=== PATIENT | male | born 1990 | race Caucasian/White ===

== ENCOUNTER 2017-10-23 18:10 | Observation (INO) | payer OTHER, SELFPAY ==
[2017-10-23] VITALS (9 sets, daily range): BP systolic 115–132; BP diastolic 78–91; PULSE 90–101; RESP 14–23; TEMP 36.8; O2SAT 93–100; BMI 26.6; BMI 25.8
--- NOTE | 2017-10-23 19:04 | EKG12_ITS ---
Test Reason : OD Blood Pressure : / mmHG Vent. Rate : 089 BPM Atrial Rate : 089 BPM P-R Int : 080 ms QRS Dur : 158 ms QT Int : 400 ms P-R-T Axes : 108 049 211 degrees QTc Int : 486 ms Sinus rhythm with short MI Left ventricular hypertrophy with QRS widening and repolarization abnormality Abnormal ECG Confirmed by ADAM ELLSWORTH ([id number]), editor newspaper MILO FUENTES ([id number]) on 10/27/2017 10:21:18 AM Referred By: GEORGETTE/GAURAV Confirmed By:ADAM ELLSWORTH
--- NOTE | 2017-10-23 19:06 | ED.VISSUMM ---
- ER Visit Summary Date of Service: 10/23/17 Chief Complaint: Overdose History of Present Illness: The patient is a 27 M presents here with mother for over ingestion of benzodiazepine. Patient history if significant anxiety. He has been on Xanax 6 mg every 6 hours for the past 6 years. He has failed previous treatment. Prescription by his PCP. He is also on Ambien at night to sleep. Patient was seen in [place] ED yesterday, mother present states his Xanax was swapped out for prescription of Valium. He was given 10 mg doses, total of 20 tabs. Mother states previously she would manage his pills, however today she allowed him to go fill his medications. He picked that up this afternoon, states over the span of 2 hours he took a total of 18 tabs, last dose was around 4 PM. He denies any suicidal ideations. He just states he wanted anxiety to go away. Increasing stressors at home, states grandmother recent diagnosis of cancer. He denies any alcohol or illicit drug use. No chest pains or shortness of breath. No nausea or vomiting. Physical Examination: General: Alert and oriented ?3, somnolent, however arousable to discussion. HEENT: Normocephalic, atraumatic. Moist mucosa membranes Neck: supple, nontender. Cardiovascular: Regular rate and rhythm, no murmurs Respiratory: Normal breath sounds, symmetric, no distress Abdomen: Soft, nontender, nondistended Extremities: Nontender, no edema, pulses intact ?4 Neuro: no focal neurological deficits. Test Results: EKG with no acute changes. Tylenol and aspirin negative. Alcohol negative. Tox screen positive for benzodiazepine. Emergency Department Course and Treatment: Patient vitals stable, somnolent, however answering questions. I did speak with poison control, they state medicines peak at 1/2-2 hours. The recommended 4 hour watch. He was monitored, return to baseline. He denies any suicidal or homicidal ideations. He is medically cleared. I did have crisis evaluate the patient, they spoke and agreed with intensive outpatient therapy. On rediscussion with the patient, with mother, he states he would like to get off the benzodiazepine. He states he feels he is now dependent on them. Therefore I do feel he will benefit from [facility] admission for weaning off the medications. I spoke with hospitalist, Dr. Red who will evaluate for admission. Treatment Plan: [] Disposition: Admission Impression: 1. Benzodiazepine dependence 2. Over ingestion of benzodiazepine 3. Anxiety This note was generated with [employer] dictation software. It may contain incorrect words, spelling, and punctuation that were not noted in review of the chart prior to signing ED Disposition - Plan for ED Patient: Disposition: Acute [facility] Chief Complaint: Overdose Diagnosis: Benzodiazepine dependence, Benzodiazepine overdose, Anxiety
[2017-10-23] MEDS: 0.9% Normal Saline 1,000 ML 150 ML IV (19:11)
[2017-10-23 19:26] LABS: ALB/GLOB Ratio 1.3 RATIO (0.9-2.4); AST(SGOT) 12 U/L (15-37); Alanine Aminotransfer ALT/SGPT 24 U/L (16-61); Albumin, Serum 4.4 g/dL (3.2-5.0); Alkaline Phosphatase 54 U/L (45-117); Anion Gap 6 (5-15); BUN 17 mg/dL (7-18); BUN/Creat Ratio 20.6 RATIO (10-20); Chloride 104 mmol/L (98-107); Creatinine, Serum 0.83 mg/dL (0.70-1.30); EST Glomerular Filtration Rate 117 mL/min (>60); Est Glom Filt Rate - Afr Amer 141 mL/min (>60); Estimated Creatinine Clearance 131.32 ml/min; Globulin 3.3 g/dL (2.2-4.2); Glucose 80 mg/dL (74-106); Potassium 3.7 mmol/L (3.5-5.1); Protein, Total 7.7 g/dL (6.4-8.2); Sodium Level 139 mmol/L (136-145)
[2017-10-23 19:29] LABS: Alcohol, Blood (Medical)-Serum < 3.0 mg/dL
[2017-10-23 19:32] LABS: Absolute Lymphocyte Count 2.78 X10^3/ul (0.83-4.51); Absolute Neutrophil Count 2.6 X10^3/uL (2.0-7.7); Basophil# 0.05 X10^3/uL; Basophil% 0.8 % (0-1); Eosinophil# 0.44 X10^3/uL; Eosinophils% 6.7 % (0-5); Hematocrit 43.4 % (40-54); Hemoglobin 14.8 g/dl (13.0-16.5); Lymphocyte # 2.78 X10^3/ul (4.0); Lymphocyte % 42.4 % (19-41); Mean Corp Hgb Conc 34.1 g/gl (32-36); Mean Platelet Vol. 9.5 fl (6.2-12.0); Monocyte# 0.65 X10^3/uL; Monocyte% 9.9 % (0-10); Neutrophil # 2.63 X10^3/uL (2.7-7.7); Platelet Count 276 K/mm3 (150-450); RBC Distribution Width CV 12.3 % (11.6-14.6); RBC Distribution Width SD 39.3 fl (35.1-43.9); Red Blood Count 4.93 M/mm3 (4.6-6.2); White Blood Count 6.6 K/mm3 (4.4-11.0)
[2017-10-23 19:35] LABS: POSITIVE COUNT NO; POSITIVE DIFFERENTIAL NO; POSITIVE MORPHOLOGY NO
[2017-10-23 20:36] LABS: Acetaminophen (Tylenol) Level < 2.0 ug/mL (10.0-30.0); Salicylate < 1.7 mg/dL (2.8-20.0)
[2017-10-23 20:36] LABS: Amphetamine Urine VISTA NEGATIVE (<1000 ng/mL); Barbiturate Urine VISTA NEGATIVE (< 200 ng/mL); Benzodiazepine Urine VISTA POSITIVE (< 200 ng/mL); Cocaine Urine VISTA NEGATIVE (< 300 ng/mL); Ecstacy Urine VISTA NEGATIVE (< 500 ng/mL); Methadone Urine VISTA NEGATIVE (< 300 ng/mL); PCP Urine VISTA NEGATIVE (< 25 ng/mL); THC Urine VISTA NEGATIVE (< 50 ng/mL); Vista UDS pH Range 6
--- NOTE | 2017-10-23 23:25 | HP.PCM_ITS ---
Problem List (1) EKG abnormal Status: Chronic (2) Anxiety Status: Acute (3) Benzodiazepine dependence Status: Chronic (4) Benzodiazepine overdose Status: Acute History of Present Illness Date of Admission: 10/23/17 Chief Complaint: Benzodiazepine overdose and withdrawal symptoms The patient is a 27 year old M about 6 years of benzodiazepine dependence, Xanax 6 mg every day for last 3 years was brought into ER for overdose of benzodiazepine. He also takes Ambien 10 mg at night. In [facility] yesterday , Xanax was swapped to long-acting Valium and Valium 10 mg was prescribed total of 20 tablets. He took 18 tablets in the span of 5 hours, last dose about 3-4 PM today. In ER, patient was seen by mental health professional, Ms. Chavez and suicidal ideation, attempt was ruled out. To me, patient also denies suicidal ideation, thoughts or attempt in the past. As per the mother, he routinely takes extra doses than prescribed dose for long time. He is really get withdrawal symptoms like anxiety/panic attack, abnormal dreams at night, muscle twitching and restlessness. Denies history of seizure. He occasionally takes wine but no history of alcohol, opioid/heroin, PCP or methamphetamine or other signs dependence [] Past Medical History Past Medical History (Chronic Problems): Chronic Problems Benzodiazepine dependence (Chronic) EKG abnormal (Chronic) Allergies No Known Allergies Allergy (Verified 10/23/17 18:10) Home Medications: Ambulatory Orders Medication Instructions Recorded ALPRAZolam [Xanax] 1 mg PO TID PRN PRN 10/23/17 Zolpidem Tartrate [Ambien] 10 mg PO QHS 10/23/17 Smoking Status: Never smoker - *Family History Paternal History Items: No pertinent history Review of Systems Constitutional: Reports: Weakness, Fatigue. Denies: Chills, Fever, Weight Change HEENT: Denies: Head Aches, Sinus Congestion, Sinus Drainage Cardiovascular: Denies: Chest Pain, Palpitations Respiratory: Denies: Cough, Shortness of breath at rest, Sputum production Gastrointestinal: Denies: Abdominal Pain, Nausea, Vomiting Genitourinary: Denies: Dysuria Musculoskeletal: Reports: Muscle pain. Denies: Joint Pain, Joint Tenderness Skin: Denies: Rash, Wounds Neurological: Denies: Numbness, Tingling, Focal weakness Psychiatric: Reports: Anxiety. Denies: Depression, Homicidal Ideations, Suicidal Ideations Hematologic/ Lymphatic: Denies: Easy Bruising, Easy Bleeding VTE Information - Inpt Only VTE Present on Admission: No VTE Mechan Device Prophylaxis: None Reason prophylaxis not ordered:: Procedure Not Indicated - Low risk - Physical Exam General: Alert, Oriented x3, Cooperative HEENT: Atraumatic, PERRLA, EOMI, Normocephalic Oral: Dry Mucosa Neck: Supple, No JVD, Negative Carotid Bruits Lungs: Clear to auscultation, Normal air movement Cardiovascular: Regular rate, Regular Rhythm, Normal S1, Normal S2, No murmurs Abdomen: Bowel Sounds Present, Soft, Non Tender, Non-Distended Extremities: No edema, Capillary Refill Less than 3 Seconds Skin: No rashes, No breakdown Musculoskeletal: No Tenderness to Palpation of Joints or Extremities Neurological: Cranial nerves II-XII grossly intact, Neuro grossly intact, - - Mild tremor Psych/Mental Status: Anxious, Restless Vital Signs Temp Pulse Resp BP Pulse Ox 98.3 F 97 20 H 117/78 100 10/23/17 18:13 10/23/17 21:00 10/23/17 21:00 10/23/17 21:00 10/23/17 21:00 Oxygen Delivery Method Room Air Weight: 180 lb 5.41 oz Body Mass Index (BMI) 26.6 Laboratory Tests Past 24 Hrs 10/23/17 10/23/17 10/23/17 18:25 18:25 18:25 WBC 6.6 RBC 4.93 Hgb 14.8 Hct 43.4 MCV 88.0 MCH 30.0 MCHC 34.1 RDW 12.3 RDW Differential 39.3 Plt Count 276 MPV 9.5 Immature Gran % (Auto) 0.200 Neut % (Auto) 40.0 L Lymph % (Auto) 42.4 H Wilbarger % (Auto) 9.9 Eos % (Auto) 6.7 H Baso % (Auto) 0.8 Absolute Neuts (auto) 2.6 Absolute Lymphs (auto) 2.78 Total Counted Not Reportable Sodium 139 Potassium 3.7 Chloride 104 Carbon Dioxide 29.0 Anion Gap 6 BUN 17 Creatinine 0.83 Estim Creat Clear Calc 131.32 Est GFR (MDRD) Af Amer 141 Est GFR (MDRD) Non-Af 117 BUN/Creatinine Ratio 20.6 H Glucose 80 Calcium 9.0 Total Bilirubin 0.30 AST 12 L ALT 24 Alkaline Phosphatase 54 Total Protein 7.7 Albumin 4.4 Globulin 3.3 Albumin/Globulin Ratio 1.3 Salicylates Urine Opiates Screen Urine Methadone Screen Acetaminophen Ur Barbiturates Screen Ur Phencyclidine Scrn Ur Amphetamines Screen U Methamphetamin-MDMA U Benzodiazepines Scrn Urine Cocaine Screen U Cannabinoids Screen Ur Drug Screen Comment Ethyl Alcohol < 3.0 10/23/17 10/23/17 18:25 19:55 WBC RBC Hgb Hct MCV MCH MCHC RDW RDW Differential Plt Count MPV Immature Gran % (Auto) Neut % (Auto) Lymph % (Auto) Wilbarger % (Auto) Eos % (Auto) Baso % (Auto) Absolute Neuts (auto) Absolute Lymphs (auto) Total Counted Sodium Potassium Chloride Carbon Dioxide Anion Gap BUN Creatinine Estim Creat Clear Calc Est GFR (MDRD) Af Amer Est GFR (MDRD) Non-Af BUN/Creatinine Ratio Glucose Calcium Total Bilirubin AST ALT Alkaline Phosphatase Total Protein Albumin Globulin Albumin/Globulin Ratio Salicylates < 1.7 L Urine Opiates Screen NEGATIVE Urine Methadone Screen NEGATIVE Acetaminophen < 2.0 L Ur Barbiturates Screen NEGATIVE Ur Phencyclidine Scrn NEGATIVE Ur Amphetamines Screen NEGATIVE U Methamphetamin-MDMA NEGATIVE U Benzodiazepines Scrn POSITIVE H Urine Cocaine Screen NEGATIVE U Cannabinoids Screen NEGATIVE Ur Drug Screen Comment Ethyl Alcohol Assessment/Plan All Active Problems Benzodiazepine overdose (Acute) Anxiety (Acute) The patient is a 27 year old M about 6 years of benzodiazepine dependence, Xanax 6 mg every day for last 3 years was brought into ER for overdose of benzodiazepine. He also takes Ambien 10 mg at night. In [facility] ER yesterday , Xanax was swapped to long-acting Valium and Valium 10 mg was prescribed total of 20 tablets. He took 18 tablets in the span of 5 hours, last dose about 3-4 PM today. In ER, patient was seen by mental health professional, Ms. Chavez and suicidal ideation, attempt was ruled out. To me, patient also denies suicidal ideation, thoughts or attempt in the past. As per the mother, he routinely takes extra doses than prescribed dose for long time. He is really get withdrawal symptoms like anxiety/panic attack, abnormal dreams at night, muscle twitching and restlessness and sometimes anger attacks/ agitation. Denies history of seizure. He occasionally takes wine but no history of alcohol, opioid/heroin, PCP or methamphetamine or other signs dependence. EKG shows normal sinus rhythm at 90 bpm with LVH with repolarization abnormality. As per the mother, patient was very obese about to 50 pound but he lost significant weight and had hypertension in the past but currently blood pressure is normal. In ED, heart rate is in 90s. Blood pressure 128/91, respiratory rate 18, pulse ox 97% on room air 1. Benzodiazepine/Valium overdose with history of benzodiazepine dependence and tolerance: The patient is admitted on regular MedSurg floor. On [facility] protocol, order set started for benzodiazepine dependence. Basic labs unremarkable. Acetaminophen, salicylate level normal. Alcohol normal. LFT within normal limit. U tox positive of benzodiazepine. 2. Acute benzodiazepine withdrawal: As mentioned above. Needs to be assessed by [facility] nurse tomorrow morning. Discharge plan as per [facility] program. 3. Abnormal EKG of LVH with repolarization abnormality: Possible chronic change. Currently blood pressure is normal and patient is not on antihypertensive medication. DVT prophylaxis: Low risk no prophylaxis indicated. Early ambulation encouraged. Laboratory Results 10/23/17 18:25: WBC 6.6, RBC 4.93, Hgb 14.8, Hct 43.4, MCV 88.0, MCH 30.0, MCHC 34.1, RDW 12.3, RDW Differential 39.3, Plt Count 276, MPV 9.5, Immature Gran % ( Auto) 0.200, Neut % (Auto) 40.0 L, Lymph % (Auto) 42.4 H, Wilbarger % (Auto) 9.9, Eos % (Auto) 6.7 H, Baso % (Auto) 0.8, Absolute Neuts (auto) 2.6, Absolute Lymphs (auto) 2.78, Total Counted Not Reportable 10/23/17 18:25: Sodium 139, Potassium 3.7, Chloride 104, Carbon Dioxide 29.0, Anion Gap 6, BUN 17, Creatinine 0.83, Estim Creat Clear Calc 131.32, Est GFR ( MDRD) Af Amer 141, Est GFR (MDRD) Non-Af 117, BUN/Creatinine Ratio 20.6 H, Glucose 80, Calcium 9.0, Total Bilirubin 0.30, AST 12 L, ALT 24, Alkaline Phosphatase 54, Total Protein 7.7, Albumin 4.4, Globulin 3.3, Albumin/Globulin Ratio 1.3 10/23/17 18:25: Ethyl Alcohol < 3.0 10/23/17 18:25: Salicylates < 1.7 L, Acetaminophen < 2.0 L 10/23/17 19:55: Urine Opiates Screen NEGATIVE, Urine Methadone Screen NEGATIVE, Ur Barbiturates Screen NEGATIVE, Ur Phencyclidine Scrn NEGATIVE, Ur Amphetamines Screen NEGATIVE, U Methamphetamin-MDMA NEGATIVE, U Benzodiazepines Scrn POSITIVE H, Urine Cocaine Screen NEGATIVE, U Cannabinoids Screen NEGATIVE, Ur Drug Screen Comment Code Visit Inpatient E&M: 98972 Init Hosp L3
[2017-10-24] VITALS (13 sets, daily range): BP systolic 97–126; BP diastolic 51–77; PULSE 74–104; RESP 14–18; TEMP 36.4–36.9; O2SAT 93–99
[2017-10-24] MEDS: chlordiazePOXIDE 25 MG Capsule PO ×6 (00:57→21:00)
--- NOTE | 2017-10-24 09:22 | NURSING ---
Addendum entered by Stefany Foote 10/24/17 12:29: Kleber from behavioral health in to see patient this morning. Original Note: Dr. Rolon verbalized request for [facility] to be notified and come see patient as well as [facility] behavioral health. This RN called Prema at [facility] and she states she will come see patient today. Linnea, [facility] behavioral health notified of consult as well. Dr. Rolon notified of same.
[2017-10-24] MEDS: Folic Acid 1 MG Tablet PO (10:15)
[2017-10-24] MEDS: Thiamine Hydrochloride 100 MG Tablet PO (10:15)
[2017-10-24] MEDS: Multivitamins,Ther W-Minerals Tablet 1 TABLET PO (10:15)
[2017-10-24] MEDS: cloNIDine HCl 0.1 MG Tablet PO (10:16)
[2017-10-24] MEDS: Ibuprofen 600 MG Tablet PO (10:16)
[2017-10-24] MEDS: QUEtiapine 25 MG Tablet PO ×2 (10:17→21:01)
--- NOTE | 2017-10-24 10:27 | PCM.PN.HOSP ---
Subjective: Patient notes feeling improved since initial presentation. Patient again confirms that he does have anxiety and depression but does not have suicidal ideations and recent ingestion was not a suicide attempt. He does admit to excessive usage. [facility] did speak with him to assist in placement following acute rehabilitation; however, he appeared somewhat reticent. His mother is in the room during discussions. Discussed need to transition/taper off BZD and transition for his anxiety and depression to SSRI versus SNRI agent and avoid BZD usage as well as avoidance of BZD-like agents, i.e. ambien with consideration trazodone if needed. Patient denies fevers, chills, nausea, emesis, abdominal pain, chest pain or dyspnea. Objective: Physical Examination: General: awake, alert, oriented x 3 and cooperative, seated upright in bed in no apparent distress. Skin: normal color, turgor, no icterus, cyanosis. HEENT: AT/NC, EOMI, PERRLA, MMM. Lungs: CTA bilaterally, moderate effort, mild decrease BL bases, no rales, ronchi or wheezing. Heart: Regular rate and rhythm; no gallop, rub audible. Abdomen: soft, NTTP, ND, normal BS. Extremities: no cyanosis, clubbing, or edema. Neurological: patient awake, alert, oriented x 3; cognitive function intact; pupils equally reactive to light and accomodation; cranial nerves II-XII grossly normal, moving all 4 extremities, no focal deficits, strength mildly globally decreased. Psychiatric: affect appears mildly flat, denies SI, does admit to anxiety and depression. Admits to overuse of BZD secondary to uncontrolled anxiety. Vitals/I&O's: Vital Signs Temp Pulse Resp BP Pulse Ox 97.6 F L 75 16 110/58 L 96 10/24/17 05:43 10/24/17 05:43 10/24/17 05:43 10/24/17 05:43 10/24/17 04:30 Oxygen Delivery Method Room Air Weight: 175 lb Body Mass Index (BMI) 25.8 Intake and Output for Last 24 Hours 10/22/17 10/23/17 10/24/17 23:59 23:59 23:59 Intake Total 100 / 100 Balance 100 / 100 Current Medications Acetaminophen (Tylenol) 500 mg PO Q4H PRN PRN PRN Reason: Temp > 100.4 F Al Hydroxide/Mg Hydroxide (Mylanta Ii) 30 ml PO Q6H PRN PRN PRN Reason: dyspesia Bisacodyl (Dulcolax) 10 mg RECTAL DAILY PRN PRN Reason: Constipation Chlordiazepoxide (Librium) 25 mg PO Q6H PRN PRN PRN Reason: Anxiety Score 2-3/3 Chlordiazepoxide (Librium) 25 mg PO Q4H [facility] Stop: 10/24/17 21:01 Last Admin: 10/24/17 10:16 Dose: 25 mg Chlordiazepoxide (Librium) 25 mg PO Q6H [facility] Stop: 10/25/17 21:01 Clonidine (Catapres) 0.1 mg PO Q2H PRN PRN PRN Reason: Hot/Cold Sweats or Anxiety Last Admin: 10/24/17 10:16 Dose: 0.1 mg Dicyclomine HCl (Bentyl) 20 mg PO Q6H PRN PRN PRN Reason: Abdomnial Discomfort Folic Acid (Folic Acid) 1 mg PO DAILY@0800 [facility] Last Admin: 10/24/17 10:15 Dose: 1 mg Hydroxyzine HCl (Vistaril Vial) 50 mg IM Q6H PRN PRN PRN Reason: Breakthrough Anxiety Hydroxyzine Pamoate (Vistaril Pamoate Capsule) 50 mg PO Q6H PRN PRN PRN Reason: Mild Anxiety (score 1/3) Ibuprofen (Motrin) 600 mg PO Q8H PRN PRN PRN Reason: Mild-Moderate Pain (1-5/10) Last Admin: 10/24/17 10:16 Dose: 600 mg Loperamide HCl (Imodium) 2 - 4 mg PO UD PRN PRN Reason: LOOSE STOOLS Methocarbamol (Methocarbamol) 750 mg PO Q6H PRN PRN PRN Reason: Muscle Aches Multivitamins/Minerals (Multivitamin With Minerals) 1 tablet PO DAILYCM [facility] Last Admin: 10/24/17 10:15 Dose: 1 tablet Ondansetron HCl (Zofran Odt) 4 mg PO Q6H PRN PRN PRN Reason: NAUSEA Pramipexole Dihydrochloride (Mirapex) 0.25 mg PO Q12H PRN PRN PRN Reason: Restless Legs Quetiapine Fumarate (Seroquel) 25 mg PO Q6H PRN PRN PRN Reason: Moderate Anxiety (score 2/3) Last Admin: 10/24/17 10:17 Dose: 25 mg Senna (Senokot) 1 tablet PO QHS PRN PRN PRN Reason: Constipation Sodium Chloride () 5 - 30 ml IV UD PRN PRN Reason: SALINE FLUSH [facility] ([facility]) [facility] Last Admin: 10/24/17 10:15 Dose: 100 mg Trazodone HCl (Desyrel) 50 mg PO QHS [facility] Medical Necessity - Tobacco Use Smoking Status: Never smoker Assessment/Plan All Active Problems Benzodiazepine overdose (Acute) Anxiety (Acute) The patient is a 27 y/o M w/ PMHx: Prior Hx HTN, Anxiety and Depression, BZD Abuse who presents to the [facility] on 10/23/17 with history of progressively increasing Xanax usage over the last 3 years in addition to benzodiazepine-like agents at night with excessive usage on day of admission with denied suicidal ideation but uncontrolled anxiety, panic attacks and depression. (1) Acute BZD Overdose and Now Acute Withdrawal w/ Underlying Anxiety and Depression: Given excessive intake, sedation and once held withdrawal onset, patient admitted to [place], routine labs obtained, initiated and continue on [facility] service protocol with taper course of librium, as needed Seroquel, Catapres, Bentyl, Vistaril, IV fluids, IV antiemetics, Tylenol as needed for pain. Once patient clinically improved and completion of taper nearing will plan [facility] assistance for transition to next level of rehabilitation care possibly [place] [facility] as it is a Mental and Drug treatment facility ([place], [place], [address] [place] [address]). Dr. Fuentes contacted regarding his patient additionally given presentation and if does not transition to drug/mental health rehab facility after acute treatment would necessitate prolonged taper upon discharge to avoid BZD withdrawal. Also, pending Behavioral Health service evaluation (2) Hypertension: Prior history, improved with weight loss, continue to monitor. (3) EKG Changes: EKG in the ED w/ LVH with repolarization abnormality, possibly chronic, will repeat. ECHO pending. Mag pending. (4) DVT prophylaxis: Low risk, ambulation. PROLONGED CARE TIME: Evaluation of patient, discussion with [facility], contacting PCP required 60 minutes above initial 70 minute visit. Code Visit Inpatient E&M: 90896 Subs Hosp L2 Procedures: 20416 Prolonged InPt Service; first hour
--- NOTE | 2017-10-24 10:41 | ECHOD_ITS ---
Reason For Study: Arrhythmia Procedure This was a 2D Doppler, Color Flow transthoracic echocardiogram. Exam performed portable in patient room. Left Ventricle Normal size and thickness. The estimated ejection fraction is 65 %. Normal diastology for age. Septal motion consistent with IVCD. No regional wall motion abnormalities noted. Right Ventricle Normal size and thickness. Normal systolic function. Atria Normal left atrium. Normal right atrium. Normal atrial septum. Mitral Valve The mitral valve is structurally normal. No prolapse or stenosis seen. Trivial mitral valve insufficiency. Tricuspid Valve Normal tricuspid valve. Mild (1+) tricuspid valve insufficiency. Right ventricular systolic pressure estimated to be 29 mmHg. Aortic Valve Normal aortic valve. Trisinus/trileaflet aortic valve. Pulmonic Valve Normal pulmonic valve. Great Vessels Normal aortic root. Normal arch. Normal inferior vena cava. Inferior vena cava collapse with sniff. Pericardium/Pleural No pericardial effusion. MMode/2D Measurements & Calculations LVIDd: 4.7 cm IVSd: 0.73 cm Ao root diam: 3.0 cm LVIDs: 3.3 cm LVPWd: 0.82 cm LA dimension: 3.5 cm FS: 30.4 % LAV(MOD-bp): 43.2 ml LA A4 area: 14.7 cm2 RA A4 area: 12.5 cm2 LAV(MOD-bp) Indexed: 22.1 ml/m2 LAV(MOD-sp2): 47.3 ml LAV(MOD-sp4): 32.6 ml Time Measurements MV dec time: 0.24 sec Doppler Measurements & Calculations MV E max angel: 70.2 cm/sec Lat Peak E' Angel: 17.7 cm/sec Med Peak E' Angel: 9.7 cm/sec MV A max angel: 46.6 cm/sec E/E' lat: 4.0 E/E' med: 7.3 MV E/A: 1.5 MV V2 max: 90.6 cm/sec MV P1/2t max angel: 89.9 cm/sec Ao V2 max: 128.1 cm/sec MV max P.3 mmHg MV P1/2t: 71.8 msec Ao max P.6 mmHg MV V2 mean: 55.1 cm/sec MV dec slope: 366.7 cm/sec2 Ao V2 mean: 76.1 cm/sec MV mean P.4 mmHg MVA(P1/2t): 3.1 cm2 Ao mean P.7 mmHg MV V2 VTI: 21.4 cm Ao V2 VTI: 21.1 cm LV V1 max: 103.9 cm/sec PA V2 max: 85.3 cm/sec TR max angel: 243.1 cm/sec LV V1 max P.3 mmHg TR max P.6 mmHg LV V1 mean P.0 mmHg LV V1 mean: 65.3 cm/sec LV V1 VTI: 20.6 cm Interpretation Summary The estimated ejection fraction is 65 %. Normal diastology for age. Trivial mitral valve insufficiency. Mild (1+) tricuspid valve insufficiency. Right ventricular systolic pressure estimated to be 29 mmHg. There is no comparison study available. Ordering Physician: Zamzam Rolon Referring Physician: Marcelo Fuentes Performed By: Grey Cordova RCS
--- NOTE | 2017-10-24 10:41 | EKG12_ITS ---
Test Reason : Blood Pressure : / mmHG Vent. Rate : 096 BPM Atrial Rate : 096 BPM P-R Int : 084 ms QRS Dur : 142 ms QT Int : 366 ms P-R-T Axes : 053 045 226 degrees QTc Int : 462 ms Normal sinus rhythm Ventricular pre-excitation Abnormal ECG When compared with ECG of 23-OCT-2017 18:16, MANUAL COMPARISON REQUIRED, DATA IS UNCONFIRMED Confirmed by DANIEL CABRERA, KADE ([id number]), art editor MILO FUENTES ([id number]) on 10/28/2017 9:49:10 AM Referred By: MURIEL Confirmed By:KADE SANCHEZ MD
--- NOTE | 2017-10-24 10:43 | PN_ITS ---
Subjective: Patient notes feeling improved since initial presentation. Patient again confirms that he does have anxiety and depression but does not have suicidal ideations and recent ingestion was not a suicide attempt. He does admit to excessive usage. [facility] did speak with him to assist in placement following acute rehabilitation; however, he appeared somewhat reticent. His mother is in the room during discussions. Discussed need to transition/taper off BZD and transition for his anxiety and depression to SSRI versus SNRI agent and avoid BZD usage as well as avoidance of BZD-like agents, i.e. ambien with consideration trazodone if needed. Patient denies fevers, chills, nausea, emesis , abdominal pain, chest pain or dyspnea. Objective: Physical Examination: General: awake, alert, oriented x 3 and cooperative, seated upright in bed in no apparent distress. Skin: normal color, turgor, no icterus, cyanosis. HEENT: AT/NC, EOMI, PERRLA, MMM. Lungs: CTA bilaterally, moderate effort, mild decrease BL bases, no rales, ronchi or wheezing. Heart: Regular rate and rhythm; no gallop, rub audible. Abdomen: soft, NTTP, ND, normal BS. Extremities: no cyanosis, clubbing, or edema. Neurological: patient awake, alert, oriented x 3; cognitive function intact; pupils equally reactive to light and accomodation; cranial nerves II-XII grossly normal, moving all 4 extremities, no focal deficits, strength mildly globally decreased. Psychiatric: affect appears mildly flat, denies SI, does admit to anxiety and depression. Admits to overuse of BZD secondary to uncontrolled anxiety. Vitals/I&O's: Vital Signs Temp Pulse Resp BP Pulse Ox 97.6 F L 75 16 110/58 L 96 10/24/17 05:43 10/24/17 05:43 10/24/17 05:43 10/24/17 05:43 10/24/17 04:30 Oxygen Delivery Method Room Air Weight: 175 lb Body Mass Index (BMI) 25.8 Intake and Output for Last 24 Hours 10/22/17 10/23/17 10/24/17 23:59 23:59 23:59 Intake Total 100 / 100 Balance 100 / 100 Current Medications Acetaminophen (Tylenol) 500 mg PO Q4H PRN PRN PRN Reason: Temp > 100.4 F Al Hydroxide/Mg Hydroxide (Mylanta Ii) 30 ml PO Q6H PRN PRN PRN Reason: dyspesia Bisacodyl (Dulcolax) 10 mg RECTAL DAILY PRN PRN Reason: Constipation Chlordiazepoxide (Librium) 25 mg PO Q6H PRN PRN PRN Reason: Anxiety Score 2-3/3 Chlordiazepoxide (Librium) 25 mg PO Q4H [facility] Stop: 10/24/17 21:01 Last Admin: 10/24/17 10:16 Dose: 25 mg Chlordiazepoxide (Librium) 25 mg PO Q6H [facility] Stop: 10/25/17 21:01 Clonidine (Catapres) 0.1 mg PO Q2H PRN PRN PRN Reason: Hot/Cold Sweats or Anxiety Last Admin: 10/24/17 10:16 Dose: 0.1 mg Dicyclomine HCl (Bentyl) 20 mg PO Q6H PRN PRN PRN Reason: Abdomnial Discomfort Folic Acid (Folic Acid) 1 mg PO DAILY@0800 [facility] Last Admin: 10/24/17 10:15 Dose: 1 mg Hydroxyzine HCl (Vistaril Vial) 50 mg IM Q6H PRN PRN PRN Reason: Breakthrough Anxiety Hydroxyzine Pamoate (Vistaril Pamoate Capsule) 50 mg PO Q6H PRN PRN PRN Reason: Mild Anxiety (score 1/3) Ibuprofen (Motrin) 600 mg PO Q8H PRN PRN PRN Reason: Mild-Moderate Pain (1-5/10) Last Admin: 10/24/17 10:16 Dose: 600 mg Loperamide HCl (Imodium) 2 - 4 mg PO UD PRN PRN Reason: LOOSE STOOLS Methocarbamol (Methocarbamol) 750 mg PO Q6H PRN PRN PRN Reason: Muscle Aches Multivitamins/Minerals (Multivitamin With Minerals) 1 tablet PO DAILYCM [facility] Last Admin: 10/24/17 10:15 Dose: 1 tablet Ondansetron HCl (Zofran Odt) 4 mg PO Q6H PRN PRN PRN Reason: NAUSEA Pramipexole Dihydrochloride (Mirapex) 0.25 mg PO Q12H PRN PRN PRN Reason: Restless Legs Quetiapine Fumarate (Seroquel) 25 mg PO Q6H PRN PRN PRN Reason: Moderate Anxiety (score 2/3) Last Admin: 10/24/17 10:17 Dose: 25 mg Senna (Senokot) 1 tablet PO QHS PRN PRN PRN Reason: Constipation Sodium Chloride () 5 - 30 ml IV UD PRN PRN Reason: SALINE FLUSH [facility] Last Admin: 10/24/17 10:15 Dose: 100 mg Trazodone HCl (Desyrel) 50 mg PO QHS [facility] Medical Necessity - Tobacco Use Smoking Status: Never smoker Assessment/Plan All Active Problems Benzodiazepine overdose (Acute) Anxiety (Acute) The patient is a 27 y/o M w/ PMHx: Prior Hx HTN, Anxiety and Depression, BZD Abuse who presents to the [facility] on 10/23/17 with history of progressively increasing Xanax usage over the last 3 years in addition to benzodiazepine-like agents at night with excessive usage on day of admission with denied suicidal ideation but uncontrolled anxiety, panic attacks and depression. (1) Acute BZD Overdose and Now Acute Withdrawal w/ Underlying Anxiety and Depression: Given excessive intake, sedation and once held withdrawal onset, patient admitted to PA, routine labs obtained, initiated and continue on [facility] service protocol with taper course of librium, as needed Seroquel, Catapres, Bentyl, Vistaril, IV fluids, IV antiemetics, Tylenol as needed for pain. Once patient clinically improved and completion of taper nearing will plan [facility] assistance for transition to next level of rehabilitation care possibly [place] at [facility] as it is a Mental and Drug treatment facility ( [place], [place], [address] [place] [address]). Dr. Fuentes contacted regarding his patient additionally given presentation and if does not transition to drug/mental health rehab facility after acute treatment would necessitate prolonged taper upon discharge to avoid BZD withdrawal. Also, pending Behavioral Health service evaluation (2) Hypertension: Prior history, improved with weight loss, continue to monitor. (3) EKG Changes: EKG in the ED w/ LVH with repolarization abnormality, possibly chronic, will repeat. ECHO pending. Mag pending. (4) DVT prophylaxis: Low risk, ambulation. PROLONGED CARE TIME: Evaluation of patient, discussion with [facility], contacting PCP required 60 minutes above initial 70 minute visit. Code Visit Inpatient E&M: 44147 Subs Hosp L2 Procedures: 22979 Prolonged InPt Service; first hour
[2017-10-24 11:28] LABS: Magnesium 2.1 mg/dL (1.6-2.6)
--- NOTE | 2017-10-24 12:45 | BH.NOTE ---
BH: Inpatient Note - Notes Behavioral Health Inpatient Note: 10/24/17 12:[address] Rolon due to anxiety and depressive symptoms. [facility] IOP had also received a referral from [facility] who completed crisis assessment last evening when pt presented to the ER. Spoke with pt in his room alone. Pt did not want his mother present. Pt denied suicidal ideations, plan, or intent to this worker as well as to crisis during ER admission. No hx of previous psychiatric admissions. Not currently linked with mental health treatment. Verbalized that counseling does not work for him and I only want to see M.D.'s about my anxiety and medications however has not attempted to make appointment with any psychiatrist in the area. Pt presented to the ER last evening after ingesting 18 tabs of Valium over the course of 2 hours. Evaluated by crisis and ER staff and was determined not to be imminent danger to self or require inpatient admission.Was referred to Outpatient treatment. He denies that taking the Valium was a suicide attempt instead stating that he needed immediate relief from his anxiety so he took increasingly more. Pt reports that he presented to [facility] on Friday night after panic attacks. During that admission pt reports that they insisted that I give them my Xanax. At that point per pt [facility] started him on Valium. Pt feels that this was bad decision as this medication was not effective. Upon filling the script pt took the 18 tabs over a 2 hour period. Pt reports that his mother had been managing his anxiety medications however she allowed him to fill the script. Pt states several times throughout the assessment that he wants everything to back to the way they were. States wants to be on his previous dose of Xanax which was prescribed through his PCP. Unable or unwilling to identify any triggers to current anxiety or stress aside from not having access to his medications. Does not believe that any other medications or talk therapy will be beneficial. Describes his depression as mild. Pt talked at length about his benzo use and dependence which clearly is primary concern. Asked numerous times if he would be given Benzos at discharge. Admits to misuse of benzos and reliance on them to function normally. We discussed treatment options and pt was dismissive and at times made demands to follow though with any type of treatment stating I'll only do that if I'm back on my normal Xanax dose and I can control my medications Pt does not want his mother to manage his medications anymore. Discussed case with pt's nurse. Current plan is unclear and medical staff are attempting to communicate with pt's PCP Dr. Fuentes. Would recommend that pt be re-evaluated closer to discharge to determine dispositions however as it appears most beneficial course of action would be for pt to be detoxed from Benzos and referred to Chemical Dependency or Dual Diagnosis treatment though [facility], or [facility] to maintain sobriety. 10/24/17 13:57
--- NOTE | 2017-10-24 13:57 | NURSING ---
Notified by SHANIA Rosales supervisor pigment making that patient will be transferred to PCU as soon as new staff member arrives, as they had to be called in. Tele monitor placed on patient until transferred. tian Penny RN on PCU to call when ready for patient.
--- NOTE | 2017-10-24 14:19 | NURSING ---
dr wayne informed immediately of ekg reading, pt placed on tele-attempt to obtain old ekg's unsuccessful-dr paniagua has none, [facility] has none, searching back to 2009-dr wayne updated
--- NOTE | 2017-10-24 14:33 | NURSING ---
report given to jennifer bassett
--- NOTE | 2017-10-24 15:13 | NURSING ---
Dr. Rolon concerned as patient and his mother both state that patient had 180 xanax refilled within the last week and that patient went to [facility] and that a few less than 180 pills of xanax were taken from patient at that visit in ER. Dr. rolon requested that they be called and asked about same. This RN called and spoke with Sonia, charge coordinator in ED. She returned call to this RN after looking into information and reports that there was not documentation of this and no pills locked with security or elsewhere for patient in hospital. Dr. Rolon requested this RN notify them that this could be a safety concern as she believes both parties here are telling the truth. Notified Sonia of same and she states she will notify her managers. This RN called [facility] again and requested supervising RN- notified Erinn, documentation supervisor of same information.
--- NOTE | 2017-10-24 15:19 | NURSING ---
Dr. Rolon requested that appointment for Dr. Beck office be made for early friday morning- states that they need notified that patient will need safe benzo taper and that withdrawal can be deadly. This RN spoke with canidda with office and notified of need for appointment- he states that the physician [facility] and cannot schedule appointment with them until Friday at the earliest. Notified him that if another physician in office is available that will work- and of importance of safe taper from benzo's - appointment scheduled with Ciro Rothman N.P. for 739- this RN entered under d/c appointments and also called MAYTE- Brayan Wyman and notified her of same.
--- NOTE | 2017-10-24 15:51 | NURSING ---
@ 1530 approx pt transferred to PCU 118 and report given to nurse taking care of pt
[2017-10-24] MEDS: traZODone 50 MG Tablet PO (21:01)
[2017-10-24] MEDS: hydrOXYzine PAM 25 MG Capsule 50 MG PO (22:11)
[2017-10-25 02:59] VITALS: BP 129/70; PULSE 82; RESP 16; TEMP 36.7; O2SAT 97
[2017-10-25 03:00] VITALS: BP 129/70; PULSE 82; RESP 16; TEMP 36.7
[2017-10-25] MEDS: chlordiazePOXIDE 25 MG Capsule PO ×2 (03:02→09:58)
--- NOTE | 2017-10-25 05:55 | EKG12_ITS ---
Test Reason : AM EKG Blood Pressure : / mmHG Vent. Rate : 071 BPM Atrial Rate : 071 BPM P-R Int : 084 ms QRS Dur : 150 ms QT Int : 420 ms P-R-T Axes : 031 054 -35 degrees QTc Int : 456 ms Normal sinus rhythm Ventricular pre-excitation, WPW pattern type B Abnormal ECG When compared with ECG of 24-OCT-2017 16:15, MANUAL COMPARISON REQUIRED, DATA IS UNCONFIRMED Confirmed by DANIEL CABRERA, KADE ([id number]), order editor MILO FUENTES ([id number]) on 10/28/2017 9:43:43 AM Referred By: MURIEL Confirmed By:KADE SANCHEZ MD
[2017-10-25] MEDS: QUEtiapine 25 MG Tablet PO (06:04)
[2017-10-25 07:32] VITALS: PULSE 64
[2017-10-25 09:18] VITALS: BP 134/83; PULSE 84; RESP 16; TEMP 36.5; O2SAT 99
--- NOTE | 2017-10-25 09:18 | PCM.CONS.C ---
Problem List (1) EKG abnormal Status: Chronic Reason for Consult Date of Consultation: 10/25/17 Reason for Consultation: Abnormal EKG, benzodiazepine overuse History of Present Illness: The patient is a 27 year old M, with a history of benzodiazepine use over the last 5 years, nondiabetic, non-smoker, nondrinker, no illicit or tnwg-buf-elowqqs herbal medications, no known history of syncope, who presented with benzodiazepine overuse where he took 18 mg of Xanax, and presented with lethargy, fatigue, and was admitted for observation. An EKG was obtained which demonstrated normal sinus rhythm with what appeared to be a left bundle branch block but upon closer inspection appear to have a short SC interval and a delta wave consistent with possible Cnnkf-Nczaastvn-Muzib type B pattern. Echocardiogram was performed which showed intact LV function with an intraventricular conduction delay, an RVSP of 29 mmHg. Cardiology consultation was requested. On further history the patient denies any presyncope, syncope, palpitations, and has been taking anxiety medications for the past 5 years. Patient does admit that his grandmother had a arrhythmia of unknown type, but has never been told any of his family members have Qqepe-Bfstclotq-Ubjyf or have from sudden cardiac . Patient denies any previous chest pain, angina, shortness of breath or dyspnea on exertion. 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 [] Past Medical History Allergies/Adverse Reactions: Allergies No Known Allergies Allergy (Verified 10/23/17 18:10) Home Medications: Ambulatory Orders Medication Instructions Recorded ALPRAZolam [Xanax] 2 mg PO TID PRN PRN 10/23/17 Zolpidem Tartrate [Ambien] 10 mg PO QHS 10/23/17 Cyclobenzaprine [Flexeril] 10 mg PO BID 10/24/17 Meloxicam [Mobic] 15 mg PO DAILY 10/24/17 Past Medical History (Chronic Problems): Chronic Problems EKG abnormal (Chronic) - *Family History Paternal History Items: No pertinent history Smoking Status: Never smoker Review of Systems - Review of Systems General: Denies: Fever, Night Sweats, Fatigue Cardiovascular: Denies: Chest Discomfort, Shortness of Breath, Orthopnea, PND, Peripheral Edema, Palpitations, Lightheadedness, Dizziness, Near Syncope, Syncope Respiratory: Denies: Cough, Sputum Production, Hemoptysis Gastrointestinal: Denies: Hematemesis, Hematochezia, Melena Genitourinary: Denies: Dysuria, Hematuria Skin: Denies: Rash Subjectve: Patient laying in bed, no acute distress. Objective: Vital Signs Temp Pulse Resp BP Pulse Ox 98.0 F 82 16 129/70 H 97 10/25/17 03:00 10/25/17 03:00 10/25/17 03:00 10/25/17 03:00 10/25/17 02:59 Oxygen Delivery Method Room Air Weight: 175 lb Body Mass Index (BMI) 25.8 Intake and Output for Last 24 Hours 10/23/17 10/24/17 10/25/17 23:59 23:59 23:59 Intake Total 100 / 100 Balance 100 / 100 General: Awake, Alert, Oriented x 3 HEENT: PERRL, EOMI, Sclera Non Icteric Neck: Supple, Good ROM, No Lymph Node Enlargement Lungs: Clear to auscultation Cardiovascular: Regular Rhythm, Normal S1, Normal S2, No Murmurs, No Rubs, No Gallops Vascular: No Carotid Bruits, Normal Femoral Pulses, Normal Radial Pulses, Normal Dorsalis Pedal Pulse, Normal Posterior Tibial Pulses Abdomen: Bowel Sounds Present, Soft, Non Tender, No HSM, No Organomegaly Extremities: No Cyanosis, No Clubbing, No edema Neurological: No Focal Motor or Sensory Deficit 10/24/17 10:54: Magnesium 2.1 Rhythm: Telemetry negative. EKG: Normal sinus rhythm with short SC interval, possible delta wave and intraventricular conduction delay in the left bundle possibly consistent with WPW type B pattern. ECHO: LVEF is 65% with intraventricular conduction delay, RVSP of 29 mmHg. Stress Test: Cardiac Cath: PCI: CT Surgery: Holter monitor: EPS: PPM: CXR: Chest CT Scan: Assessment/Plan 1. 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 In addition the patient appears to have intraventricular conduction delay on his echocardiogram and has been struggling with anxiety for many many years. According to the literature, this type B pattern is fairly rare, and can be diagnosed with MRI evaluation of his cardiac structures, as well as internal EP studies followed by ablation of present. There is also evidence that his LV function can normalize and perhaps his anxiety can also improve as well. After a long and thorough discussion with the patient, I recommended that he be evaluated by electrophysiology sooner rather than later particularly as he will continue to require antianxiety medicines in the short-term. I have asked the secondary social studies teacher staff to evaluate which hospital he may be transferred to on this admission as the patient request transfer sooner than later for WPW evaluation by an immigration specialist. They are looking into this and will get back to me as to which hospital would be deemed appropriate given his circumstances. In the meantime I would have cautious use of AV rocío blocking agent such as digoxin, calcium channel blockers, beta-blockers, and benzodiazepines and high dosages. I have explained this to the patient and I recommended he reduce his benzodiazepine use to as little as possible. The patient has been on moderate dose benzodiazepines for the past 5 years and has had no syncopal episodes or palpitations. He has no family history of sudden cardiac but does have an arrhythmia noted in his grandmother of unknown type. Once we get guidance on what hospital he can go to I will consult with Dr. Rolon to facilitate transfer to that facility versus discharge home with outpatient follow-up. 2. Thank you very much for the opportunity to put dissipate in the cardiac care of your patient. Consultation time took place between 9:15 AM. Code Visit Inpatient E&M: 93817 Init Hosp L2
--- NOTE | 2017-10-25 09:27 | CON.PCM_ITS ---
Problem List (1) EKG abnormal Status: Chronic Reason for Consult Date of Consultation: 10/25/17 Reason for Consultation: Abnormal EKG, benzodiazepine overuse History of Present Illness: The patient is a 27 year old M, with a history of benzodiazepine use over the last 5 years, nondiabetic, non-smoker, nondrinker, no illicit or over-the- counter herbal medications, no known history of syncope, who presented with benzodiazepine overuse where he took 18 mg of Xanax, and presented with lethargy , fatigue, and was admitted for observation. An EKG was obtained which demonstrated normal sinus rhythm with what appeared to be a left bundle branch block but upon closer inspection appear to have a short RI interval and a delta wave consistent with possible Xdpfp-Lumyuqtjn-Ymjzu type B pattern. Echocardiogram was performed which showed intact LV function with an intraventricular conduction delay, an RVSP of 29 mmHg. Cardiology consultation was requested. On further history the patient denies any presyncope, syncope, palpitations, and has been taking anxiety medications for the past 5 years. Patient does admit that his grandmother had a arrhythmia of unknown type, but has never been told any of his family members have Asrfr-Dcopmvtkj-Pzhuu or have from sudden cardiac . Patient denies any previous chest pain, angina, shortness of breath or dyspnea on exertion. 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 [] Past Medical History Allergies/Adverse Reactions: Allergies No Known Allergies Allergy (Verified 10/23/17 18:10) Home Medications: Ambulatory Orders Medication Instructions Recorded ALPRAZolam [Xanax] 2 mg PO TID PRN PRN 10/23/17 Zolpidem Tartrate [Ambien] 10 mg PO QHS 10/23/17 Cyclobenzaprine [Flexeril] 10 mg PO BID 10/24/17 Meloxicam [Mobic] 15 mg PO DAILY 10/24/17 Past Medical History (Chronic Problems): Chronic Problems EKG abnormal (Chronic) - *Family History Paternal History Items: No pertinent history Smoking Status: Never smoker Review of Systems - Review of Systems General: Denies: Fever, Night Sweats, Fatigue Cardiovascular: Denies: Chest Discomfort, Shortness of Breath, Orthopnea, PND, Peripheral Edema, Palpitations, Lightheadedness, Dizziness, Near Syncope, Syncope Respiratory: Denies: Cough, Sputum Production, Hemoptysis Gastrointestinal: Denies: Hematemesis, Hematochezia, Melena Genitourinary: Denies: Dysuria, Hematuria Skin: Denies: Rash Subjectve: Patient laying in bed, no acute distress. Objective: Vital Signs Temp Pulse Resp BP Pulse Ox 98.0 F 82 16 129/70 H 97 10/25/17 03:00 10/25/17 03:00 10/25/17 03:00 10/25/17 03:00 10/25/17 02:59 Oxygen Delivery Method Room Air Weight: 175 lb Body Mass Index (BMI) 25.8 Intake and Output for Last 24 Hours 10/23/17 10/24/17 10/25/17 23:59 23:59 23:59 Intake Total 100 / 100 Balance 100 / 100 General: Awake, Alert, Oriented x 3 HEENT: PERRL, EOMI, Sclera Non Icteric Neck: Supple, Good ROM, No Lymph Node Enlargement Lungs: Clear to auscultation Cardiovascular: Regular Rhythm, Normal S1, Normal S2, No Murmurs, No Rubs, No Gallops Vascular: No Carotid Bruits, Normal Femoral Pulses, Normal Radial Pulses, Normal Dorsalis Pedal Pulse, Normal Posterior Tibial Pulses Abdomen: Bowel Sounds Present, Soft, Non Tender, No HSM, No Organomegaly Extremities: No Cyanosis, No Clubbing, No edema Neurological: No Focal Motor or Sensory Deficit 10/24/17 10:54: Magnesium 2.1 Rhythm: Telemetry negative. EKG: Normal sinus rhythm with short RI interval, possible delta wave and intraventricular conduction delay in the left bundle possibly consistent with WPW type B pattern. ECHO: LVEF is 65% with intraventricular conduction delay, RVSP of 29 mmHg. Stress Test: Cardiac Cath: PCI: CT Surgery: Holter monitor: EPS: PPM: CXR: Chest CT Scan: Assessment/Plan 1. 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 In addition the patient appears to have intraventricular conduction delay on his echocardiogram and has been struggling with anxiety for many many years. According to the literature, this type B pattern is fairly rare, and can be diagnosed with MRI evaluation of his cardiac structures, as well as internal EP studies followed by ablation of present. There is also evidence that his LV function can normalize and perhaps his anxiety can also improve as well. After a long and thorough discussion with the patient, I recommended that he be evaluated by electrophysiology sooner rather than later particularly as he will continue to require antianxiety medicines in the short-term. I have asked the social science teacher staff to evaluate which hospital he may be transferred to on this admission as the patient request transfer sooner than later for WPW evaluation by an clinical application specialist. They are looking into this and will get back to me as to which hospital would be deemed appropriate given his circumstances. In the meantime I would have cautious use of AV rocío blocking agent such as digoxin, calcium channel blockers, beta-blockers, and benzodiazepines and high dosages. I have explained this to the patient and I recommended he reduce his benzodiazepine use to as little as possible. The patient has been on moderate dose benzodiazepines for the past 5 years and has had no syncopal episodes or palpitations. He has no family history of sudden cardiac but does have an arrhythmia noted in his grandmother of unknown type. Once we get guidance on what hospital he can go to I will consult with Dr. Rolon to facilitate transfer to that facility versus discharge home with outpatient follow-up. 2. Thank you very much for the opportunity to put dissipate in the cardiac care of your patient. Consultation time took place between 9:15 AM. Code Visit Inpatient E&M: 48071 Init Hosp L2
[2017-10-25] MEDS: Multivitamins,Ther W-Minerals Tablet 1 TABLET PO (09:57)
[2017-10-25] MEDS: Folic Acid 1 MG Tablet PO (09:57)
[2017-10-25] MEDS: Thiamine Hydrochloride 100 MG Tablet PO (09:58)
--- NOTE | 2017-10-25 10:00 | PCM.DC ---
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 Ro on Friday and clearance given Cvrec-Ixcyshxuv-Bzeuh diagnosis. May resume sexual activity in: - - Avoid aggressive activity including sexual activity until evaluation per Dr. Ro and clearance. Weight Bearing Status: Weight bearing as tolerated Call your doctor if you observe: Fever of 101 or Higher, Inability to urinate, Inability to have a bowel movement, Shortness of breath, Dizziness, Fainting spells, Chest pain, Uncontrolled pain, - - Uncontrolled anxiety/panic attacks. It is vital that if you have any dizziness, lightheadedness or fainting spells, shortness of breath or chest discomfort you immediately present to the emergency room and also contact your eligibility technician including Dr. Ro as this may be secondary to your heart electrical system abnormality. Instructions: How Your Heart Works, Your Heart's Electrical System, Understanding Social Phobia (Social Anxiety Disorder), Understanding Anxiety Disorders, Treating Panic Disorder with Medication, Understanding Generalized Anxiety Disorder (NADIRA), ED Withdrawal Benzodiazepine Additional Instructions: PLAN OF CARE: ANXIETY/XANAX DEPENDENCE: You will be evaluated on Friday at your primary care office. At that time it is the Assistant Refinery Operator, Psychologist and Hospitalist recommendation that you begin a prolonged xanax taper and transition to alternate regimen for anxiety given concerns for effect on your heart and also dependence on this regimen which also currently appears to be ineffective for your ongoing anxiety. The pharmacy you normally fill your medications in [place] has been contacted given your recent fill and updated and will administer a short-term amount of xanax in order to avoid withdrawal that will last through your appointment with your primary care. Possible transitions would include start of zoloft with transition to klonopin and only very low dose breakthrough shot-acting antianxiety medication (i.e. xanax). MARELY PARKINSON WHITE TYPE B (WPW): Dr. Batista has discussed your heart rhythm with Dr. Ro, the Assistant Refinery Operator at [facility] who specializes in irregular condution system/electrical issues of the heart who notes that you do not require immediately transfer as you have been asymptomatic and on your anxiety medications for nearly [address] Ro would like you to call his office early friday morning and arrange appointment in his office for evaluation on Friday to review options for your heart problem. It is desired that you wean your short acting anxiety medications also secondary to the heart condition. WPW REVIEW: Fmgeu-Nabwyvsbe-Htnqc syndrome is a condition that can cause fast heartbeats that in turn cause episodes of dizziness and can occasionally cause fainting as well. People can have episodes when her heart beats much faster than normal which can lead to symptoms. The fast heart rate can come and go suddenly and sometimes goes back to normal on its own. Sometimes treatment is required. People can have abnormal heartbeats if the electrical signal does not start in the right place or if that signal does not follow the right path as it spreads across the heart. In Qhmcm-Ixvypxvjl-Nkpxg they can have an abnormal extra path and the heart therefore the electrical signal can sometimes follow this abnormal pathway which can lead to a faster heart rate than normal. If at any point you develop any chest discomfort or trouble breathing you need to immediately present to the emergency room and contact her eligibility technician. Sometimes if you can fill the onset of your fast heartbeat some actions that can be taken or coughing or bearing down which is when you tighten your belly like when you are trying to have a bowel movement. Sometimes medications are required and sometimes a eligibility technician needs to alter the electrical rhythm in your heart. All of these types of options and which interventions are appropriate for you will be discussed at your follow-up visit with the consumer electronics merchandiser/Assistant Refinery Operator, Dr. Ro. Allergies/Adverse Reactions: Allergies No Known Allergies Allergy (Verified 10/23/17 18:10) Medications to take at Discharge Meloxicam [Mobic] 15 mg PO DAILY 10/24/17 ALPRAZolam [Xanax] 2 mg PO TID #20 tab 10/25/17 traZODone [Desyrel] 50 mg PO QHS PRN #3 tab 10/25/17 The following prescriptions were given: traZODone [Desyrel] 50 mg PO QHS PRN #3 tab PRN Reason: Insomnia ALPRAZolam [Xanax] 2 mg PO TID #20 tab Primary Care Physician: Marcelo Fuentes MD [Primary Care Provider] - Please follow up with your Primary Care Physician in: You have appt on w/ [facility] STRUCTURES ASSEMBLER, please also arrange f/u w/ MD. Please Follow Up With: Ciro Rothman N.P. When: 10/25/17 at 7:40 am. Please Follow Up With: Roland Ro When: [facility] EP Assistant Refinery Operator, call early friday to arrange Friday appt. Please Follow Up With: Behavioral Health When: Please contact [phone] to assist in options for therapist set-up. Please Follow Up With: Matthew Batista MD When: You will follow alf w/ Dr. Batista, his office will contact you. Proposed Discharge Date: 10/25/17
--- NOTE | 2017-10-25 10:10 | DCINST_ITS ---
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 Ro on Friday and clearance given Ozkzk-Fgycbvgvr-Lxcjm diagnosis. May resume sexual activity in: - - Avoid aggressive activity including sexual activity until evaluation per Dr. Ro and clearance. Weight Bearing Status: Weight bearing as tolerated Call your doctor if you observe: Fever of 101 or Higher, Inability to urinate, Inability to have a bowel movement, Shortness of breath, Dizziness, Fainting spells, Chest pain, Uncontrolled pain, - - Uncontrolled anxiety/panic attacks. It is vital that if you have any dizziness, lightheadedness or fainting spells, shortness of breath or chest discomfort you immediately present to the emergency room and also contact your prop making supervisor including Dr. Ro as this may be secondary to your heart electrical system abnormality. Instructions: How Your Heart Works, Your Heart's Electrical System, Understanding Social Phobia (Social Anxiety Disorder), Understanding Anxiety Disorders, Treating Panic Disorder with Medication, Understanding Generalized Anxiety Disorder (NADIRA), ED Withdrawal Benzodiazepine Additional Instructions: PLAN OF CARE: ANXIETY/XANAX DEPENDENCE: You will be evaluated on Friday at your primary care office. At that time it is the Biotechnician, Psychologist and Hospitalist recommendation that you begin a prolonged xanax taper and transition to alternate regimen for anxiety given concerns for effect on your heart and also dependence on this regimen which also currently appears to be ineffective for your ongoing anxiety. The pharmacy you normally fill your medications in [place] has been contacted given your recent fill and updated and will administer a short-term amount of xanax in order to avoid withdrawal that will last through your appointment with your primary care. Possible transitions would include start of zoloft with transition to klonopin and only very low dose breakthrough shot-acting antianxiety medication (i.e. xanax). KARISHMA PARKINSON WHITE TYPE B (WPW): Dr. Batista has discussed your heart rhythm with Dr. Ro, the Biotechnician at [facility] who specializes in irregular condution system/electrical issues of the heart who notes that you do not require immediately transfer as you have been asymptomatic and on your anxiety medications for nearly [address] Ro would like you to call his office early friday morning and arrange appointment in his office for evaluation on Friday to review options for your heart problem. It is desired that you wean your short acting anxiety medications also secondary to the heart condition. WPW REVIEW: Karishma-Parkinson -White syndrome is a condition that can cause fast heartbeats that in turn cause episodes of dizziness and can occasionally cause fainting as well. People can have episodes when her heart beats much faster than normal which can lead to symptoms. The fast heart rate can come and go suddenly and sometimes goes back to normal on its own. Sometimes treatment is required. People can have abnormal heartbeats if the electrical signal does not start in the right place or if that signal does not follow the right path as it spreads across the heart. In Naexd-Eqkpzgerh-Jefca they can have an abnormal extra path and the heart therefore the electrical signal can sometimes follow this abnormal pathway which can lead to a faster heart rate than normal. If at any point you develop any chest discomfort or trouble breathing you need to immediately present to the emergency room and contact her prop making supervisor. Sometimes if you can fill the onset of your fast heartbeat some actions that can be taken or coughing or bearing down which is when you tighten your belly like when you are trying to have a bowel movement. Sometimes medications are required and sometimes a prop making supervisor needs to alter the electrical rhythm in your heart. All of these types of options and which interventions are appropriate for you will be discussed at your follow-up visit with the manager of clinical/ Biotechnician, Dr. Ro. Allergies/Adverse Reactions: Allergies No Known Allergies Allergy (Verified 10/23/17 18:10) Medications to take at Discharge Meloxicam [Mobic] 15 mg PO DAILY 10/24/17 ALPRAZolam [Xanax] 2 mg PO TID #20 tab 10/25/17 traZODone [Desyrel] 50 mg PO QHS PRN #3 tab 10/25/17 The following prescriptions were given: traZODone [Desyrel] 50 mg PO QHS PRN #3 tab PRN Reason: Insomnia ALPRAZolam [Xanax] 2 mg PO TID #20 tab Primary Care Physician: Marcelo Fuentes MD [Primary Care Provider] - Please follow up with your Primary Care Physician in: You have appt on w/ [facility] C[facility] APPLICATIONS ASSOCIATE , please also arrange f/u w/ MD. Please Follow Up With: Ciro Rothman N.P. When: 10/25/17 at 7:40 am. Please Follow Up With: Roland Ro When: [facility] EP Biotechnician, call early friday to arrange Friday appt. Please Follow Up With: Behavioral Health When: Please contact [phone] to assist in options for therapist set-up. Please Follow Up With: Matthew Batista MD When: You will follow retirement w/ Dr. Batista, his office will contact you. Proposed Discharge Date: 10/25/17
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
[2017-10-25 11:22] VITALS: PULSE 93
[2017-10-25] MEDS: ALPRAZolam 0.5 MG Tablet 2 MG PO (12:03)
[2017-10-25 12:20] VITALS: BP 134/83; PULSE 84; RESP 16; TEMP 36.5; O2SAT 99
== END 2017-10-25 12:23 | disposition home or self-care (01) | DRG 897 ==
LOC: ED 19:34 → MS3 23:34 → PCU 10-25 12:23 → MS3 05-14 09:50 → PCU 05-14 09:50
PROVIDERS: Admitting Provider Internal Medicine; Emergency Provider Emergency Medicine; Family Provider Family Medicine; PCP Family Medicine; Visit Provider Family Medicine
DX: F13.239 Sedative, hypnotic or anxiolytic dependence with withdrawal, unspecified (principal); T42.4X5A Adverse effect of benzodiazepines, initial encounter; T42.4X1A Poisoning by benzodiazepines, accidental (unintentional), initial encounter; I45.6 Pre-excitation syndrome; F32.9 Major depressive disorder, single episode, unspecified; F41.9 Anxiety disorder, unspecified; Z86.79 Personal history of other diseases of the circulatory system; R94.31 Abnormal electrocardiogram [ECG] [EKG]; Z79.899 Other long term (current) drug therapy; I08.1 Rheumatic disorders of both mitral and tricuspid valves
CPT/HCPCS: 36415; 80053; 80307; 80320; 80329; 83735; 85025; 93005; 93306; 99218; 99282; A4216; G0378; G0480

== ENCOUNTER 2017-11-02 14:36 | Emergency (ER) | payer OTHER, SELFPAY ==
[2017-11-02 14:37] VITALS: BP 152/98; PULSE 113; RESP 20; TEMP 36.6; O2SAT 98; BMI 25.1
--- NOTE | 2017-11-02 15:30 | ED.VISSUMM ---
- ER Visit Summary Date of Service: 11/02/17 Chief Complaint: Anxiety History of Present Illness: The patient is a 27 M presenting with anxiety. Patient was admitted to the hospital on October 23 for benzo dependence. Plan was established to taper his Xanax. He was seen by his primary care physician's RN [employer] [employer] on Friday and was given a week's worth of Xanax. He is scheduled to see Dr Fuentes on Friday. He ran out of the Xanax that was supposed to last him one week yesterday, 3 days early. He is supposed to take Xanax 1 mg, 6 times a day. He states he lost track of how much he is taking it. He states he has been very anxious and having nightmares. He denies suicidal ideation. While in the hospital he was also evaluated for WPW and followed up with cardiology at [facility]. He is scheduled to have a stress test and Holter monitor on November 06. Physical Examination: Vitals are stable. Patient is afebrile. Alert no acute distress. HEENT exam is unremarkable. Neck is supple. Lungs are clear and equal bilaterally. Heart is regular rate and rhythm. Abdomen is soft nontender nondistended. Extremities are unremarkable. Skin is warm and dry. No focal neurologic deficit. Anxious, denies suicidal ideation Remainder of exam is unremarkable. Emergency Department Course and Treatment: Patient was given Xanax p.o. CBC, chemistries unremarkable. Alcohol negative. Discussed with the counseling center for evaluation. After counseling center evaluation, patient and mother would prefer discharge home to follow-up with his primary care physician on Friday. Mother would like more time to look into different facilities. He denies suicidal or homicidal ideation. Discussed with Dr. Penn. Patient will be given a prescription for 1 day of Xanax. His mother will distribute the medication to him. Advised return to ED if worsening complaints. Disposition: Discharge home Impression: Anxiety, benzodiazepine abuse/dependence This note was generated with [employer] dictation software. It may contain incorrect words, spelling, and punctuation that were not noted in review of the chart prior to signing ED Disposition - Plan for ED Patient: Chief Complaint: Anxiety Instructions: Understanding Generalized Anxiety Disorder (NADIRA) Prescriptions: ALPRAZolam [Xanax] 1.5 mg PO Q6H PRN #8 tablet PRN Reason: Anxiety Referrals: Marcelo Fuentes MD [Primary Care Provider] -
--- NOTE | 2017-11-02 15:33 | ED.DCSUM_ITS ---
- ER Visit Summary Date of Service: 11/02/17 Chief Complaint: Anxiety History of Present Illness: The patient is a 27 M presenting with anxiety. Patient was admitted to the hospital on October 23 for benzo dependence. Plan was established to taper his Xanax. He was seen by his primary care physician's ENGINEERING MGR on Friday and was given a week's worth of Xanax. He is scheduled to see Dr Fuentes on Friday. He ran out of the Xanax that was supposed to last him one week yesterday, 3 days early. He is supposed to take Xanax 1 mg, 6 times a day. He states he lost track of how much he is taking it. He states he has been very anxious and having nightmares. He denies suicidal ideation. While in the hospital he was also evaluated for WPW and followed up with cardiology at [facility]. He is scheduled to have a stress test and Holter monitor on November 06. Physical Examination: Vitals are stable. Patient is afebrile. Alert no acute distress. HEENT exam is unremarkable. Neck is supple. Lungs are clear and equal bilaterally. Heart is regular rate and rhythm. Abdomen is soft nontender nondistended. Extremities are unremarkable. Skin is warm and dry. No focal neurologic deficit. Anxious, denies suicidal ideation Remainder of exam is unremarkable. Emergency Department Course and Treatment: Patient was given Xanax p.o. CBC, chemistries unremarkable. Alcohol negative. Discussed with the counseling center for evaluation. After counseling center evaluation, patient and mother would prefer discharge home to follow-up with his primary care physician on Friday. Mother would like more time to look into different facilities. He denies suicidal or homicidal ideation. Discussed with Dr. Penn. Patient will be given a prescription for 1 day of Xanax. His mother will distribute the medication to him. Advised return to ED if worsening complaints. Disposition: Discharge home Impression: Anxiety, benzodiazepine abuse/dependence This note was generated with [employer] dictation software. It may contain incorrect words, spelling, and punctuation that were not noted in review of the chart prior to signing ED Disposition - Plan for ED Patient: Chief Complaint: Anxiety Instructions: Understanding Generalized Anxiety Disorder (NADIRA) Prescriptions: ALPRAZolam [Xanax] 1.5 mg PO Q6H PRN #8 tablet PRN Reason: Anxiety Referrals: Marcelo Fuentes MD [Primary Care Provider] -
[2017-11-02] MEDS: ALPRAZolam 0.5 MG Tablet 1 MG PO ×2 (16:00→21:25)
[2017-11-02 16:08] LABS: Absolute Lymphocyte Count 2.38 X10^3/ul (0.83-4.51); Absolute Neutrophil Count 3.4 X10^3/uL (2.0-7.7); Basophil# 0.04 X10^3/uL; Basophil% 0.6 % (0-1); Eosinophil# 0.13 X10^3/uL; Eosinophils% 1.9 % (0-5); Hemoglobin 16.9 g/dl (13.0-16.5); Lymphocyte # 2.38 X10^3/ul (4.0); Lymphocyte % 35.4 % (19-41); Mean Corpuscular Hgb 31.2 pg (27.0-32.0); Mean Corpuscular Volume 86.7 fL (80-94); Mean Platelet Vol. 9.4 fl (6.2-12.0); Monocyte# 0.74 X10^3/uL; Neutrophil # 3.43 X10^3/uL (2.7-7.7); Platelet Count 337 K/mm3 (150-450); RBC Distribution Width CV 11.9 % (11.6-14.6); RBC Distribution Width SD 37.9 fl (35.1-43.9); Red Blood Count 5.42 M/mm3 (4.6-6.2); White Blood Count 6.7 K/mm3 (4.4-11.0)
[2017-11-02 16:09] LABS: POSITIVE COUNT NO; POSITIVE DIFFERENTIAL NO; POSITIVE MORPHOLOGY NO
[2017-11-02 16:13] LABS: Anion Gap 6 (5-15); BUN 14 mg/dL (7-18); BUN/Creat Ratio 16.9 RATIO (10-20); Calcium,Total 8.8 mg/dL (8.5-10.1); Chloride 103 mmol/L (98-107); Creatinine, Serum 0.83 mg/dL (0.70-1.30); EST Glomerular Filtration Rate 117 mL/min (>60); Est Glom Filt Rate - Afr Amer 141 mL/min (>60); Estimated Creatinine Clearance 131.32 ml/min; Glucose 97 mg/dL (74-106); Sodium Level 138 mmol/L (136-145)
[2017-11-02 17:07] VITALS: BP 140/74; PULSE 76; RESP 18; O2SAT 98
[2017-11-02 17:41] LABS: Amphetamine Urine VISTA NEGATIVE (<1000 ng/mL); Barbiturate Urine VISTA NEGATIVE (< 200 ng/mL); Benzodiazepine Urine VISTA POSITIVE (< 200 ng/mL); Cocaine Urine VISTA NEGATIVE (< 300 ng/mL); Ecstacy Urine VISTA NEGATIVE (< 500 ng/mL); Methadone Urine VISTA NEGATIVE (< 300 ng/mL); PCP Urine VISTA NEGATIVE (< 25 ng/mL); THC Urine VISTA NEGATIVE (< 50 ng/mL); Vista UDS pH Range 6
--- NOTE | 2017-11-02 21:07 | ED.DEP ---
ED Disposition - Plan for ED Patient: Chief Complaint: Anxiety Instructions: Understanding Generalized Anxiety Disorder (NADIRA) Prescriptions: ALPRAZolam [Xanax] 1.5 mg PO Q6H PRN #8 tablet PRN Reason: Anxiety Referrals: Marcelo Fuentes MD [Primary Care Provider] -
[2017-11-02 21:26] VITALS: BP 142/90; PULSE 85; RESP 17
== END 2017-11-02 21:30 | disposition home or self-care (01) ==
LOC: ED 16:49
PROVIDERS: Emergency Provider Emergency Medicine; Family Provider Family Medicine; PCP Family Medicine
DX: F41.9 Anxiety disorder, unspecified (principal); F13.20 Sedative, hypnotic or anxiolytic dependence, uncomplicated; Z79.899 Other long term (current) drug therapy
CPT/HCPCS: 80048; 80307; 80320; 85025; 99284; G0480

== ENCOUNTER → 2017-11-06 10:05 | Outpatient (CLI) | payer OTHER, SELFPAY ==
--- NOTE | 2017-11-06 12:47 | STRESSREP ---
Stress Test Report Treadmill EKG report: Resting EKG: Normal sinus rhythm with shortened WA interval and delta wave consistent with type B [id number], intraventricular conduction delay. Treadmill EKG: Patient exercise according to a Shaquille protocol for 7 minutes and 0 seconds achieving a workload of 8.50 METS. Resting heart rate was initially 80 beats a minute lena to max of 171 bpm which represents 89% of the maximal age bracket heart rate. Resting blood pressure was 120/94 and lena to max of 162/82. Test was terminated due to dyspnea and leg pain. During exercise the patient's heart rate increased as expected. The patient had no arrhythmias noted. No anginal symptoms noted. Conclusions normal, adequate treadmill EKG. Negative for ischemia by EKG criteria. No arrhythmias noted. Appropriate blood pressure response to exercise. Below average exercise capacity for age. No anginal symptoms noted. Patient tolerated the procedure well.
== END ==
PROVIDERS: Family Provider Family Medicine; PCP Family Medicine; Visit Provider Internal Medicine Cardiovascular Disease
DX: I45.6 Pre-excitation syndrome (principal)
CPT/HCPCS: 93017; 93225; 93226

== ENCOUNTER 2018-12-24 00:17 | Emergency (ER) | payer OTHER, SELFPAY ==
[2018-12-24 00:18] VITALS: BP 149/81; PULSE 113; RESP 21; TEMP 36.6; O2SAT 100; BMI 27.4
[2018-12-24 00:21] VITALS: PULSE 105
[2018-12-24] MEDS: hydrOXYzine 50 MG/ML Vial IM (00:40)
--- NOTE | 2018-12-24 02:17 | ED.DCSUM_ITS ---
- ER Visit Summary Date of Service: 12/24/18 Chief Complaint: Panic attack History of Present Illness: The patient is a 28 M who states that for the past several hours she has been having a panic attack. He notes that he is hyperventilating he has a headache he feels palpitations. He denies any ingestions he denies that he is withdrawing from any medications. He denies ingestion of any stimulants. States he has a history of anxiety. States that he currently takes trazodone at night for insomnia and Vistaril which is not helping for his anxiety. He states these are written for him by his primary care physician in [place]. He lives in [place]. He states he does not trust the hospital in [place] so he drove to [place] to be seen. From my see in the computer he has a history of benzodiazepine dependence and he tells me that he went through a detox program because of it. He tells me that he is only had about 4 panic attacks in his life that have been this bad. Physical Examination: Afebrile vital signs are stable noted heart rate of 105 Gen: Well-nourished well-developed Head: Normocephalic atraumatic Eyes: Perrl EOMI ENT: TMs clear no rhinorrhea moist mucous membranes Neck: Supple no lymphadenopathy no JVD nontender CVS: Regular rate rhythm no murmurs normal S1-S2 Respiratory: No distress clear to auscultation bilaterally chest nontender Abdomen: Soft nontender nondistended normal bowel sounds no masses Back: Nontender Extremity: Nontender no edema Skin: Normal color no rash Neuro: alert orientated ?3 CN II-XII intact normal strength sensation Psych: Patient appears anxious. No suicidal homicidal ideation. Emergency Department Course and Treatment: I gave the patient a dose of IM Vistaril. He tells me he has done nothing for him. He asked to speak with me again and states he really needs to get this under control. Performed an oars report which demonstrates that on the of this month he received 30 tablets of zolpidem, on the a prescription of diazepam 2 mg quantity 60, and on the 40 tablets of clonazepam 1 mg was prescribed and filled at a pharmacy in [place]. This was by Dr. Foster Justin. He tells me that he recently started seeing Dr. Justin but he does not take those medications. He failed to mention seeing a psychiatrist when asked who he is seen for his anxiety he told me his primary care physician. Went over the rest of his medications on the oars report and seems to be in order. His name and birthdate seem to be in order. I informed the patient with his history and inconsistencies I would not be prescribing or administering a benzodiazepine for him tonight. I am happy to give him a dose of Haldol which should help calm him. He has a ride. He should call his doctors in the morning. Impression: 1. Panic attack 2. Generalized anxiety disorder This note was generated with [employer] dictation software. It may contain incorrect words, spelling, and punctuation that were not noted in review of the chart prior to signing ED Disposition - Plan for ED Patient: Disposition: Home or Assisted Living Instructions: Panic Attack Referrals: Nahid Jade MD [Primary Care Provider] - As soon as possible
[2018-12-24] MEDS: Haloperidol Lactate 5 MG/ML Vial 10 MG IM (02:21)
[2018-12-24 02:35] VITALS: BP 146/80; PULSE 100; RESP 18; O2SAT 100
== END 2018-12-24 02:36 | disposition home or self-care (01) ==
PROVIDERS: Emergency Provider Emergency Medicine; Family Provider Family Medicine; PCP Family Medicine
DX: F41.0 Panic disorder [episodic paroxysmal anxiety] (principal); F41.1 Generalized anxiety disorder; Z79.899 Other long term (current) drug therapy
CPT/HCPCS: 96372; 99283